=== PATIENT | female | born 1960 | race Two or more races ===

== ENCOUNTER 2019-06-21 10:24 | Emergency (ER) | payer SELFPAY ==
[~2019-06-21] VITALS: Ht 154.9 cm; Wt 98.0 kg
[2019-06-21] MEDS ORDERED: ALBUTEROL (0.083%) 2.5MG/3ML NEB HHN STA (12:49)
[2019-06-21] MEDS ORDERED: IPRATROPIUM BROMIDE (0.02%) 0.5MG/2.5ML NEB HHN STA (12:49)
[2019-06-21 14:48] VITALS: BP 148/70
== END 2019-06-21 14:30 | disposition home or self-care (01) ==
LOC: ER 10:24
DX: J20.9 Acute bronchitis, unspecified (principal); H92.01 Otalgia, right ear; H10.9 Unspecified conjunctivitis; J45.909 Unspecified asthma, uncomplicated; E11.9 Type 2 diabetes mellitus without complications; I10 Essential (primary) hypertension; Z90.710 Acquired absence of both cervix and uterus; Z98.890 Other specified postprocedural states; Z88.1 Allergy status to other antibiotic agents
CPT/HCPCS: 71045; 94640; 99283; J7611; Z7610

== ENCOUNTER 2019-09-02 07:38 | Emergency (ER) | payer MEDICARE ==
[~2019-09-02] VITALS: Ht 154.9 cm; Wt 91.0 kg
[2019-09-02 09:56] VITALS: BP 158/89
== END 2019-09-02 09:57 | disposition home or self-care (01) ==
LOC: ER 07:38
DX: J20.9 Acute bronchitis, unspecified (principal); M79.18 Myalgia, other site
CPT/HCPCS: 71045; 99283